=== PATIENT | female | born 1965 | race Caucasian/White ===

== ENCOUNTER 2018-05-01 22:43 | Emergency (ER) | payer OTHER ==
[~2018-05-01] VITALS: Ht 162.6 cm; Wt 74.8 kg
[~2018-05-01 22:43] MED LIST: CEPHALEXIN 500500 M3 PO; FLEXERIL PO; HYDROCODONE-AP1 EAC6 PO; IBUPROFEN 800800 MG PO; LEVOTHYROXIN0.025 MG PO; LOVASTATIN 20 M20 MG PO; MEVACOR 20 MG T20 MG; NORCO 5-325 TA1 EACH PO; NYSTATIN 100,0015 G1 TP; ONDANSETRON HCL4 M2 PO; ZOLOFT25 MG; ZOLOFT50 MG PO
[2018-05-01 23:49] VITALS: BP 137/84
== END 2018-05-01 23:50 | disposition home or self-care (01) ==
LOC: M.ERS 22:43
DX: S20.461A Insect bite (nonvenomous) of right back wall of thorax, initial encounter (principal); E78.00 Pure hypercholesterolemia, unspecified; F32.9 Major depressive disorder, single episode, unspecified; W57.XXXA Bitten or stung by nonvenomous insect and other nonvenomous arthropods, initial encounter; Y93.89 Activity, other specified; Y92.89 Other specified places as the place of occurrence of the external cause; Y99.8 Other external cause status